=== PATIENT | female | born 1995 | race Caucasian/White ===

== ENCOUNTER 2018-08-21 14:45 | Emergency (ER) | payer OTHER ==
[~2018-08-21] VITALS: Ht 160 cm; Wt 100.7 kg
--- NOTE | 2018-08-21 15:07 | NUR ---
FRANCK GROSSMAN AT BEDSIDE FOR MSE.
[2018-08-21] MEDS ORDERED: predniSONE 50 MG TABLET ONE (15:21)
--- NOTE | 2018-08-21 15:22 | NUR ---
Patient discharged to home in stable conditon. Written and verbal after care instructions given. Patient verbalizes understanding of instructions. ALL BELONGINGS W/ PT. PT SELF-AMBULATED W/O DIFFICULTY.
[2018-08-21 15:23] VITALS: BP 111/72
[2018-08-21] MEDS ORDERED: predniSONE 50 MG TABLET PO ONE (15:30)
== END 2018-08-21 15:24 | disposition home or self-care (01) ==
LOC: ER 14:45
DX: J45.909 Unspecified asthma, uncomplicated (principal)
CPT/HCPCS: 99283; J7512; A4663

== ENCOUNTER 2018-10-06 13:28 | Emergency (ER) | payer OTHER ==
[~2018-10-06] VITALS: Ht 160 cm; Wt 99.8 kg
--- NOTE | 2018-10-06 13:36 | NUR ---
PT A/OX4, PRESENTS TO THE ER C/O LOW BACK PAIN X 2 DAYS. PT REPORTS SHE WOKE UP W/ THE PAIN "COUPLE OF DAYS AGO", DENIES INJURY/FALL. LOW BACK PAIN IS ACHING IN QUALITY, PROVOKED UPON MOVEMENT, RADIATES DOWN RLE, 7/10, CONSTANT. VSS. PT IS ABLE TO SELF-AMBULATE W/O DIFFICULTY. PT DENIES C/P, SOB, N/V/D, DIZZINESS, HEADACHE.
--- NOTE | 2018-10-06 13:41 | NUR ---
FRANCK GROSSMAN AT BEDSIDE FOR MSE.
[2018-10-06] MEDS ORDERED: HYDROMORPHONE 1 MG/1 ML DISP.SYRIN IM ONE (13:45)
[2018-10-06] MEDS ORDERED: ONDANSETRON 4 MG/2 ML VIAL IM ONE (13:45)
[2018-10-06] MEDS ORDERED: ONDANSETRON 4 MG/2 ML VIAL ONE (13:48)
[2018-10-06] MEDS ORDERED: HYDROMORPHONE 2 MG/1 ML DISP.SYRIN ONE (13:48)
--- NOTE | 2018-10-06 14:03 | NUR ---
Patient discharged to home in stable conditon. Written and verbal after care instructions given. Patient verbalizes understanding of instructions. ALL BELONGINGS W/ PT. PT SELF-AMBULATED W/O DIIFFICULTY. PT WILL BE DRIVEN HOME BY FRIEND IN PRIVATE VEHICLE.
[2018-10-06 14:06] VITALS: BP 131/72
== END 2018-10-06 14:07 | disposition home or self-care (01) ==
LOC: ER 13:28
DX: M54.41 Lumbago with sciatica, right side (principal)
CPT/HCPCS: 96372 ×2; 99283; J1170; J2405; A4663

== ENCOUNTER 2018-10-06 22:58 | Emergency (ER) | payer OTHER ==
[~2018-10-06] VITALS: Ht 162.6 cm; Wt 90.7 kg
--- NOTE | 2018-10-06 23:10 | NUR ---
Pt came to ER via wheelchair accompanied by boyfriend to RM 2A. Pt c/o sharp, back pain 01/06, radiates to leg. Pt seen by MD earlier this afternoon for sciatica.
--- NOTE | 2018-10-06 23:11 | NUR ---
Seen and examined by DR. CLIFTON
[2018-10-06] MEDS ORDERED: IV NORMAL SALINE 1000 ML BAG IV ONE (23:15)
[2018-10-06] MEDS ORDERED: ONDANSETRON 4 MG/2 ML VIAL IV ONE (23:15)
[2018-10-06] MEDS ORDERED: ONDANSETRON 4 MG/2 ML VIAL ONE (23:21)
[2018-10-06 23:35] LABS: BASOPHILS # (AUTO) 0.1 K/uL (0.0-8.0); BASOPHILS % (AUTO) 0.7 % (0.0-2.0); HEMATOCRIT 37.3 % (31.2-41.9); HEMOGLOBIN 11.5 g/dL (10.9-14.3); LYMPHOCYTES # (AUTO) 1.2 K/uL (20.0-40.0); LYMPHOCYTES % (AUTO) 7.8 % (20.5-51.5); MEAN CORPUSCULAR HEMOGLOBIN 23.4 uug (24.7-32.8); MEAN CORPUSCULAR HGB CONC 31 g/dL (32.3-35.6); MEAN CORPUSCULAR VOLUME 75.7 fL (75.5-95.3); MONOCYTES # (AUTO) 0.4 K/uL (2.0-10.0); MONOCYTES % (AUTO) 2.8 % (0.0-11.0); NEUTROPHILS # (AUTO) 13.7 K/uL (1.8-8.9); NEUTROPHILS % (AUTO) 88.7 % (38.5-71.5); PLATELET COUNT (AUTO) 405 K/uL (179-408); RED BLOOD CELL COUNT(AUTO) 4.92 MIL/uL (3.63-4.92); WHITE BLOOD COUNT (AUTO) 15.4 K/uL (3.8-11.8)
[2018-10-06 23:43] LABS: CREATININE 0.8 mg/dL (0.6-1.3); POTASSIUM 4.2 mmol/L (3.5-5.1)
[2018-10-06 23:44] LABS: ETHANOL < 3 MG/DL (0-0)
[2018-10-06 23:47] LABS: ACETAMINOPHEN < 2.0 ug/mL (10-30)
[2018-10-06 23:50] LABS: BILIRUBIN,DIRECT 0.1 mg/dL (0.0-0.2); BILIRUBIN,TOTAL 0.3 mg/dL (0.2-1.0); TOTAL PROTEIN, SERUM 8.4 g/dL (6.4-8.2)
--- NOTE | 2018-10-07 00:10 | NUR ---
Ambulated to the BR with little assistance. Urine specimen sent to lab.
[2018-10-07] MEDS ORDERED: METOCLOPRAMIDE HCL 10 MG/2 ML VIAL IV ONE (00:15)
[2018-10-07] MEDS ORDERED: METOCLOPRAMIDE HCL 10 MG/2 ML VIAL ONE (00:20)
[2018-10-07 00:28] LABS: *BILIRUBIN,URIN NEGATIVE (NEGATIVE); *BLOOD, URINE 3+ (NEGATIVE); *CLARITY,URINE SLIGHTLY CLOUDY (CLEAR); *COLOR,URINE YELLOW (YELLOW); *KETONES,URINE NEGATIVE (NEGATIVE); *UROBILINOGEN,URINE 0.2 E.U./dl (NORMAL); LEUKOCYTE ESTERASE ,URINE NEGATIVE (NEGATIVE); NITRITE, URINE NEGATIVE (NEGATIVE); UGLUCOSE NEGATIVE (NEGATIVE)
[2018-10-07 00:40] LABS: *AMPHETAMINE, URINE NEGATIVE (NEGATIVE); *BARBITURATE, URINE NEGATIVE (NEGATIVE); *CANNABINOID, URINE NEGATIVE (NEGATIVE); *COCCAINE, URINE NEGATIVE (NEGATIVE); *OPIATE, URINE POSITIVE (NEGATIVE); *PHENCYCLIDINE SCREEN,URINE NEGATIVE (NEGATIVE)
[2018-10-07 00:45] LABS: RBC,URINE 50-80 /HPF (0-3); WBC,URINE 0-3 /HPF (0-3)
[2018-10-07 00:46] LABS: BACTERIA,URINE MODERATE /HPF (NONE SEEN); SQUAMOUS EPITHELIAL CELL,UR MANY /HPF (NONE SEEN)
--- NOTE | 2018-10-07 01:30 | NUR ---
Dr. Powers discussed results of lab tests with patient. Patient now awake and feeling better.
--- NOTE | 2018-10-07 01:40 | NUR ---
Patient discharged to home in stable conditon. Written and verbal after care instructions given. Patient verbalizes understanding of instructions.
[2018-10-07 01:52] VITALS: BP 130/70
== END 2018-10-07 01:40 | disposition home or self-care (01) ==
LOC: ER 22:58
DX: R11.2 Nausea with vomiting, unspecified (principal); R40.0 Somnolence; D72.829 Elevated white blood cell count, unspecified
CPT/HCPCS: 36415; 80048; 80076; 80307; 81000; 81001; 83690; 84702; 85025; 87086; 96361; 96374; 96375; 99283; G0480 ×2; G0481; J2405; J2765; A4663; J7030

== ENCOUNTER 2019-01-28 17:42 | Emergency (ER) | payer OTHER ==
[~2019-01-28] VITALS: Ht 160 cm; Wt 104.3 kg
[2019-01-28 18:23] LABS: *URINE HCG, QUAL NEGATIVE (NEGATIVE)
[2019-01-28 18:24] LABS: *BILIRUBIN,URIN NEGATIVE (NEGATIVE); *CLARITY,URINE CLEAR (CLEAR); *COLOR,URINE LIGHT YELLOW (YELLOW); *KETONES,URINE NEGATIVE (NEGATIVE); *UROBILINOGEN,URINE 0.2 E.U./dl (NORMAL); LEUKOCYTE ESTERASE ,URINE NEGATIVE (NEGATIVE); NITRITE, URINE NEGATIVE (NEGATIVE); UGLUCOSE NEGATIVE (NEGATIVE)
[2019-01-28 18:31] LABS: *BLOOD, URINE TRACE (NEGATIVE); RBC,URINE 0-3 /HPF (0-3); SQUAMOUS EPITHELIAL CELL,UR FEW /HPF (NONE SEEN); WBC,URINE NONE SEEN /HPF (0-3)
[2019-01-28 18:34] LABS: BASOPHILS # (AUTO) 0.1 K/uL (0.0-8.0); BASOPHILS % (AUTO) 0.5 % (0.0-2.0); CREATININE 0.6 mg/dL (0.6-1.3); EOSINOPHILS # (AUTO) 0.1 K/uL (0.0-0.7); EOSINOPHILS % (AUTO) 0.5 % (0.0-7.0); HEMATOCRIT 34.2 % (31.2-41.9); HEMOGLOBIN 11.1 g/dL (10.9-14.3); LYMPHOCYTES # (AUTO) 2.3 K/uL (20.0-40.0); LYMPHOCYTES % (AUTO) 18.8 % (20.5-51.5); MEAN CORPUSCULAR HGB CONC 33 g/dL (32.3-35.6); MONOCYTES # (AUTO) 0.9 K/uL (2.0-10.0); MONOCYTES % (AUTO) 7.8 % (0.0-11.0); NEUTROPHILS # (AUTO) 8.7 K/uL (1.8-8.9); NEUTROPHILS % (AUTO) 72.4 % (38.5-71.5); PLATELET COUNT (AUTO) 389 K/uL (179-408); POTASSIUM 3.6 mmol/L (3.5-5.1); RED BLOOD CELL COUNT(AUTO) 4.44 MIL/uL (3.63-4.92)
[2019-01-28 18:39] LABS: BILIRUBIN,DIRECT 0.1 mg/dL (0.0-0.2); BILIRUBIN,TOTAL 0.5 mg/dL (0.2-1.0); TOTAL PROTEIN, SERUM 7.8 g/dL (6.4-8.2)
[2019-01-28 19:03] VITALS: BP 114/75
--- NOTE | 2019-01-28 19:03 | NUR ---
Patient discharged to home in stable conditon. Written and verbal after care instructions given. Patient verbalizes understanding of instructions.
== END 2019-01-28 19:04 | disposition home or self-care (01) ==
LOC: ER 17:54
DX: N83.202 Unspecified ovarian cyst, left side (principal); G89.29 Other chronic pain; R10.2 Pelvic and perineal pain
CPT/HCPCS: 36415; 76856; 83690; 84703; 85025; A4663

== ENCOUNTER 2019-05-05 18:11 | Emergency (ER) | payer OTHER ==
[~2019-05-05] VITALS: Ht 160 cm; Wt 104.3 kg
[2019-05-05] MEDS ORDERED: ACETAMINOPHEN ES 500 MG TABLET ONE (18:44)
[2019-05-05] MEDS ORDERED: ACETAMINOPHEN ES 500 MG TABLET PO ONE (18:45)
[2019-05-05 18:58] LABS: BASOPHILS % (AUTO) 0.4 % (0.0-2.0); EOSINOPHILS % (AUTO) 0.5 % (0.0-7.0); HEMATOCRIT 36.7 % (31.2-41.9); HEMOGLOBIN 11.7 g/dL (10.9-14.3); LYMPHOCYTES # (AUTO) 1.8 K/uL (20.0-40.0); MEAN CORPUSCULAR HEMOGLOBIN 25.5 uug (24.7-32.8); MEAN CORPUSCULAR HGB CONC 32 g/dL (32.3-35.6); MEAN CORPUSCULAR VOLUME 79.5 fL (75.5-95.3); MONOCYTES # (AUTO) 0.7 K/uL (2.0-10.0); MONOCYTES % (AUTO) 10.6 % (0.0-11.0); NEUTROPHILS # (AUTO) 3.8 K/uL (1.8-8.9); NEUTROPHILS % (AUTO) 59.5 % (38.5-71.5); PLATELET COUNT (AUTO) 327 K/uL (179-408); RED BLOOD CELL COUNT(AUTO) 4.61 MIL/uL (3.63-4.92); WHITE BLOOD COUNT (AUTO) 6.3 K/uL (3.8-11.8)
--- NOTE | 2019-05-05 19:04 | NUR ---
HAND OFF AND SBAR RECEIVED FR OUTGOING DAY SHIFT RN PT RA AMBULATORY NAD CURRENTLY DENIES PAIN MONITORED ACCORDINGLY SIDERAILSX2 UP BED AT LOWEST POSITION
[2019-05-05 19:15] LABS: CREATININE 0.6 mg/dL (0.6-1.3); POTASSIUM 3.9 mmol/L (3.5-5.1)
[2019-05-05 19:28] LABS: BILIRUBIN,DIRECT 0.1 mg/dL (0.0-0.2); BILIRUBIN,TOTAL 0.2 mg/dL (0.2-1.0); TOTAL PROTEIN, SERUM 7.9 g/dL (6.4-8.2)
[2019-05-05] MEDS ORDERED: AMOXicillin 250 MG CAPSULE ONE (22:35)
--- NOTE | 2019-05-05 22:41 | NUR ---
Patient discharged to home in stable conditon. Written and verbal after care instructions given. Patient verbalizes understanding of instructions. AMBULATORY W/ STABLE GAIT ALL BELONGINGS W/ PT
[2019-05-05] MEDS ORDERED: AMOXicillin 250 MG CAPSULE PO ONE (22:45)
[2019-05-05 22:49] VITALS: BP 118/80
== END 2019-05-05 22:49 | disposition home or self-care (01) ==
LOC: ER 18:11
DX: R07.89 Other chest pain (principal); J32.9 Chronic sinusitis, unspecified
CPT/HCPCS: 36415; 70030-TC; 71045; 85025; 93005; A4663; A9150

== ENCOUNTER 2019-07-26 12:53 | Emergency (ER) | payer OTHER ==
[~2019-07-26] VITALS: Ht 160 cm; Wt 104.3 kg
--- NOTE | 2019-07-26 13:10 | NUR ---
PATIENT WAS MSE BY DR MARTINEZ IN ROOM 05A. PATIENT A & O X4.
[2019-07-26] MEDS ORDERED: IBUPROFEN 800 MG TABLET PO ONE (13:15)
[2019-07-26] MEDS ORDERED: IBUPROFEN 800 MG TABLET ONE (13:23)
[2019-07-26 13:39] LABS: *BILIRUBIN,URIN NEGATIVE (NEGATIVE); *BLOOD, URINE 1+ (NEGATIVE); *CLARITY,URINE CLEAR (CLEAR); *COLOR,URINE YELLOW (YELLOW); *KETONES,URINE NEGATIVE (NEGATIVE); *UROBILINOGEN,URINE 0.2 E.U./dl (NORMAL); LEUKOCYTE ESTERASE ,URINE NEGATIVE (NEGATIVE); NITRITE, URINE NEGATIVE (NEGATIVE); PH,URINE 5.5 (5.0-8.0); UGLUCOSE NEGATIVE (NEGATIVE)
[2019-07-26 13:40] LABS: *URINE HCG, QUAL NEGATIVE (NEGATIVE)
[2019-07-26 13:43] LABS: BACTERIA,URINE FEW /HPF (NONE SEEN); MUCUS,URINE MANY /LPF (0-FEW); SQUAMOUS EPITHELIAL CELL,UR MANY /HPF (NONE SEEN)
--- NOTE | 2019-07-26 14:05 | NUR ---
Patient discharged to home in stable condition. Written and verbal after care instructions given. Patient verbalizes understanding of instructions.
[2019-07-26 14:06] VITALS: BP 115/71
== END 2019-07-26 14:09 | disposition home or self-care (01) ==
LOC: ER 13:00
DX: R10.30 Lower abdominal pain, unspecified (principal); J06.0 Acute laryngopharyngitis
CPT/HCPCS: 84703; 87086; A4663

== ENCOUNTER 2019-12-06 21:27 | Emergency (ER) | payer OTHER ==
[~2019-12-06] VITALS: Ht 160 cm; Wt 105.7 kg
--- NOTE | 2019-12-06 21:42 | NUR ---
Dr. Rubio at bedside for MSE.
[2019-12-06] MEDS ORDERED: KETOROLAC TROMETHAMINE 30 MG INJ IVP ONE (21:45)
[2019-12-06] MEDS ORDERED: IV D5/ 0.9% NACL 1,000 ML IV ONE (21:45)
[2019-12-06] MEDS ORDERED: ONDANSETRON 4 MG/2 ML VIAL IV ONE (21:45)
[2019-12-06] MEDS ORDERED: ONDANSETRON 4 MG/2 ML VIAL ONE (21:49)
[2019-12-06] MEDS ORDERED: KETOROLAC TROMETHAMINE 30 MG INJ ONE (21:49)
[2019-12-06 22:19] LABS: BASOPHILS % (AUTO) 0.3 % (0.0-2.0); EOSINOPHILS % (AUTO) 0.1 % (0.0-7.0); HEMATOCRIT 35.5 % (31.2-41.9); HEMOGLOBIN 11.5 g/dL (10.9-14.3); LYMPHOCYTES # (AUTO) 1.2 K/uL (20.0-40.0); LYMPHOCYTES % (AUTO) 9.7 % (20.5-51.5); MEAN CORPUSCULAR HEMOGLOBIN 25.4 uug (24.7-32.8); MEAN CORPUSCULAR HGB CONC 32 g/dL (32.3-35.6); MEAN CORPUSCULAR VOLUME 78.4 fL (75.5-95.3); MONOCYTES # (AUTO) 0.4 K/uL (2.0-10.0); MONOCYTES % (AUTO) 3.2 % (0.0-11.0); NEUTROPHILS # (AUTO) 10.4 K/uL (1.8-8.9); NEUTROPHILS % (AUTO) 86.7 % (38.5-71.5); PLATELET COUNT (AUTO) 364 K/uL (179-408); RED BLOOD CELL COUNT(AUTO) 4.52 MIL/uL (3.63-4.92); WHITE BLOOD COUNT (AUTO) 11.9 K/uL (3.8-11.8)
[2019-12-06 22:22] LABS: CREATININE 0.7 mg/dL (0.6-1.3); POTASSIUM 3.4 mmol/L (3.5-5.1)
[2019-12-06 22:28] LABS: BILIRUBIN,DIRECT 0.1 mg/dL (0.0-0.2); BILIRUBIN,TOTAL 0.4 mg/dL (0.2-1.0); TOTAL PROTEIN, SERUM 7.5 g/dL (6.4-8.2)
[2019-12-06] MEDS ORDERED: IV LACTATED RINGERS SOLUTION 1,000 ML IV ONE (22:33)
--- NOTE | 2019-12-06 23:15 | NUR ---
Assisted patient to bathroom, no falls noted. Patient provided with 200 cc water for PO challenge.
--- NOTE | 2019-12-06 23:38 | NUR ---
Patient discharged to home in stable condition. Written and verbal after care instructions given. Patient verbalizes understanding of instructions. Stressed follow up or return to ER for worsening s/s. Patient out of ER with steady gait, no acute signs of distress, VSS, all belongings taken, IV site discontinued.
[2019-12-06 23:39] VITALS: BP 105/60
== END 2019-12-06 23:40 | disposition home or self-care (01) ==
LOC: ER 21:28
DX: R11.2 Nausea with vomiting, unspecified (principal); R19.7 Diarrhea, unspecified; R50.9 Fever, unspecified; D72.829 Elevated white blood cell count, unspecified; J45.909 Unspecified asthma, uncomplicated; Z20.828 Contact with and (suspected) exposure to other viral communicable diseases
CPT/HCPCS: 36415; 80048; 80076; 83690; 84702; 85025; 96361; 96374; 96375; 99284; J1885; J2405; J3490; J7120; U0003; A4663; J7030

== ENCOUNTER 2020-11-02 23:18 | Emergency (ER) | payer BC, OTHER ==
[~2020-11-02] VITALS: Ht 157.5 cm; Wt 103.0 kg
--- NOTE | 2020-11-02 23:36 | NUR ---
Patient in bed, in no acute distress at this time. All patient needs anticipated and met. ER MD at bedside
[2020-11-02] MEDS ORDERED: ONDANSETRON 4 MG/2 ML VIAL IV ONE (23:45)
[2020-11-02] MEDS ORDERED: IV NS 1000 ML 1,000 ML IV ONE (23:45)
[2020-11-02] MEDS ORDERED: IBUPROFEN 800 MG TABLET PO ONE (23:45)
[2020-11-02] MEDS ORDERED: ONDANSETRON 4 MG/2 ML VIAL ONE (23:52)
[2020-11-02] MEDS ORDERED: IBUPROFEN 800 MG TABLET ONE (23:52)
[2020-11-03 00:13] LABS: HEMATOCRIT 36.8 % (31.2-41.9); MEAN CORPUSCULAR HEMOGLOBIN 25.8 uug (24.7-32.8); PLATELET COUNT (AUTO) 412 K/uL (179-408)
[2020-11-03 00:17] LABS: CREATININE 0.9 mg/dL (0.6-1.3); POTASSIUM 3.4 mmol/L (3.5-5.1)
[2020-11-03 00:23] LABS: BILIRUBIN,TOTAL 0.2 mg/dL (0.2-1.0); TOTAL PROTEIN, SERUM 7.3 g/dL (6.4-8.2)
[2020-11-03] MEDS ORDERED: OXYC-128 PO (01:42)
--- NOTE | 2020-11-03 01:52 | NUR ---
Patient discharged to home in stable condition. Written and verbal after care instructions given. Patient verbalizes understanding of instructions. Stressed follow up or return to ER for worsening s/s. Ambulated from ER with stable giat. All belongings with patient. PIV removed prior to d/c. Will be driven home by taxi.
[2020-11-03 01:53] VITALS: BP 124/77
== END 2020-11-03 01:53 | disposition home or self-care (01) ==
LOC: ER 23:19
DX: B34.9 Viral infection, unspecified (principal); E87.6 Hypokalemia; Z83.3 Family history of diabetes mellitus; L83 Acanthosis nigricans
CPT/HCPCS: 36415; 80053; 85025; 86403; 96374; 99284; J2405; 87070; A4663; J7030

== ENCOUNTER 2023-01-14 22:32 | Emergency (ER) | payer OTHER ==
[~2023-01-14] VITALS: Ht 157.5 cm; Wt 108.9 kg
[~2023-01-14 22:32] MED LIST: HYDR-3972 PO; ONDA4TAB11 PO
[2023-01-14] MEDS ORDERED: IV NORMAL SALINE 1000 ML BAG IV ONE (23:00)
[2023-01-14] MEDS ORDERED: diphenhydrAMINE 50 MG/1 ML VIAL IV ONE (23:00)
[2023-01-14] MEDS ORDERED: ACETAMINOPHEN ES 500 MG TABLET PO ONE (23:00)
[2023-01-14] MEDS ORDERED: DEXAMETHASONE SOD PHOSPHATE 4 MG INJ IV ONE (23:00)
[2023-01-14] MEDS ORDERED: KETOROLAC TROMETHAMINE 15 MG INJ IVP ONE (23:00)
[2023-01-14] MEDS ORDERED: METOCLOPRAMIDE HCL 10 MG/2 ML VIAL IV ONE (23:00)
[2023-01-14] MEDS ORDERED: ACETAMINOPHEN ES 500 MG TABLET ONE (23:17)
[2023-01-14] MEDS ORDERED: diphenhydrAMINE 50 MG/1 ML VIAL ONE (23:17)
[2023-01-14] MEDS ORDERED: KETOROLAC TROMETHAMINE 15 MG INJ ONE (23:18)
[2023-01-14] MEDS ORDERED: METOCLOPRAMIDE HCL 10 MG/2 ML VIAL ONE (23:18)
[2023-01-14] MEDS ORDERED: DEXAMETHASONE SOD PHOSPHATE 10 MG INJ ONE (23:43)
[2023-01-15] MEDS ORDERED: METO-295 PO (01:21)
[2023-01-15 01:46] VITALS: BP 139/87; TEMP 98.3; O2SAT 99
== END 2023-01-15 01:30 | disposition home or self-care (01) ==
LOC: ER 22:32
DX: S06.0X0A Concussion without loss of consciousness, initial encounter (principal); Z79.899 Other long term (current) drug therapy; X58.XXXA Exposure to other specified factors, initial encounter; Y93.89 Activity, other specified; Y92.89 Other specified places as the place of occurrence of the external cause; Y99.8 Other external cause status
CPT/HCPCS: 99284; 96374; 96375; 96361; J1100; J1200; J1885; J2765; J7040; A4663; A9150